=== PATIENT | male | born 1940 | race Caucasian/White ===

== ENCOUNTER 2017-03-13 20:29 | Emergency (ER) | payer MEDICARE ==
[2017-03-13 21:32] LABS: BASOPHIL 0.2 % (0-2); EOSINOPHIL 0.9 % (0-7); HGB 11.6 g/dl (13.2-18.0); LYMPHOCYTE 8.1 % (15-48); MCH 33.1 pg (25.0-31.0); MCHC 33.1 g/dL (32.0-36.0); MONOCYTE 13.5 % (0-12); MPV 9.4 fL (6.0-9.5); NEUTROPHIL 77.3 % (41-80); PLT 275 K/uL (150-400); RDW 15.9 % (11.5-14.0); WBC 9.8 K/uL (4.0-10.5)
[2017-03-13 21:50] LABS: ALBUMIN 3.7 g/dL (3.4-4.8); BILIRUBIN - TOTAL 0.4 mg/dL (0.1-1.0); CREATININE 0.7 mg/dL (0.7-1.2); GLOBULIN (CALCULATION) 3.4 g/dL (2.2-4.2); POTASSIUM 3.8 mmol/L (3.5-5.1); TOTAL PROTEIN 7.1 g/dL (6.4-8.3)
[2017-03-13 22:33] LABS: CLARITY CLEAR (CLEAR); COLOR YELLOW (YELLOW); GLUCOSE (U) NORMAL (NORMAL); KETONE (U) 2+ (MODERATE) mg/dL (NEGATIVE); PROTEIN 1+ mg/dL (NEGATIVE)
[2017-03-13 22:34] LABS: BILIRUBIN 1+ mg/dL (NEGATIVE); BLOOD TRACE-LYSED Ery/uL (NEGATIVE); LEUKOCYTES NEGATIVE Leu/uL (NEGATIVE); NITRITE NEGATIVE (NEGATIVE)
== END 2017-03-13 23:30 | disposition home or self-care (01) ==
LOC: FER 20:29
PROVIDERS: Emergency Medicine
DX: J44.1 Chronic obstructive pulmonary disease with (acute) exacerbation (principal); C34.90 Malignant neoplasm of unspecified part of unspecified bronchus or lung; F17.210 Nicotine dependence, cigarettes, uncomplicated; Z79.51 Long term (current) use of inhaled steroids
CPT/HCPCS: 36415; 36600; 71020; 80053; 81001; 82803; 85025; 87070; 87205; 94640; 94760; J2930

== ENCOUNTER 2017-03-24 14:36 | Emergency (ER) | payer MEDICARE | END 2017-03-24 15:30 | disposition home or self-care (01) | LOC: FER 14:36 | DX: S30.860A Insect bite (nonvenomous) of lower back and pelvis, initial encounter (principal); S80.861A Insect bite (nonvenomous), right lower leg, initial encounter; S80.862A Insect bite (nonvenomous), left lower leg, initial encounter; R00.0 Tachycardia, unspecified; F17.210 Nicotine dependence, cigarettes, uncomplicated; Z85.118 Personal history of other malignant neoplasm of bronchus and lung; Z92.21 Personal history of antineoplastic chemotherapy; Z92.3 Personal history of irradiation; W57.XXXA Bitten or stung by nonvenomous insect and other nonvenomous arthropods, initial encounter | CPT/HCPCS: 99282 ==